=== PATIENT | male | born 1935 | race Caucasian/White ===

== ENCOUNTER 2017-09-22 12:18 | Emergency (ER) | payer MEDICARE ==
[~2017-09-22] VITALS: Ht 177.8 cm; Wt 72.0 kg
[2017-09-22] MEDS ORDERED: LOSA50TA6 PO (12:31)
[2017-09-22] MEDS ORDERED: METF500T4 PO (12:31)
[2017-09-22] MEDS ORDERED: BUSP7.5T3 PO (12:31)
[2017-09-22] MEDS ORDERED: ONDANSETRON 2MG/ML, 2ML ONE (12:36)
[2017-09-22] MEDS ORDERED: MORPHINE SULFATE 4 MG/ML, 1ML ONE ×2 (12:36→13:15)
[2017-09-22] MEDS: MORPHINE SULFATE 4 MG/ML, 1ML IVPush PRN ×2 (12:41→13:18)
[2017-09-22] MEDS ORDERED: FAMOTIDINE 20 MG/2 ML ONE (12:41)
[2017-09-22] MEDS ORDERED: GLIM2TAB2 PO (12:57)
[2017-09-22] MEDS ORDERED: LOVA40TA2 PO (12:57)
[2017-09-22] MEDS ORDERED: TAMS-11 PO (12:57)
[2017-09-22] MEDS ORDERED: OXYB5TAB7 PO (12:57)
[2017-09-22] MEDS ORDERED: LOSA1TAB25 PO (12:57)
[2017-09-22] MEDS ORDERED: FINA5TAB4 PO (12:57)
[2017-09-22] MEDS ORDERED: CITA20TA9 PO (12:57)
[2017-09-22] MEDS ORDERED: TRAM50TA2 PO (12:57)
[2017-09-22 13:00] LABS: BASOPHILS # (AUTO) 0.01 x10^3/uL (0-0.1); BASOPHILS % (AUTO) 0 % (0-1); EOSINOPHILS # (AUTO) 0.02 x10^3/uL (0-0.4); EOSINOPHILS % (AUTO) 0 % (1-7); LYMPHOCYTES # (AUTO) 1.03 x10^3/uL (1-3.4); LYMPHOCYTES % (AUTO) 13 % (22-44); MD NO; MEAN CORPUSCULAR HEMOGLOBIN 31.2 pg (27.5-34.5); MEAN CORPUSCULAR HGB CONC 34.5 g/dL (33.2-36.2); MEAN CORPUSCULAR VOLUME 90.4 fL (81-97); MEAN PLATELET VOLUME 7.4 fL (7.4-10.4); MONOCYTES % (AUTO) 4 % (2-9); NEUTROPHILS # (AUTO) 6.89 x10^3/uL (1.8-6.8); NEUTROPHILS % (AUTO) 84 % (42-75); PLATELET COUNT 294 x10^3/uL (130-400); RED BLOOD COUNT 4.32 x10^6/uL (4.38-5.82); RED CELL DISTRIBUTION WIDTH 12.9 % (9.4-14.8)
[2017-09-22] MEDS ORDERED: FAMOTIDINE 20 MG/2 ML IVP ONE (13:00)
[2017-09-22] MEDS ORDERED: ONDANSETRON 2MG/ML, 2ML IVPush ONE (13:00)
[2017-09-22] MEDS ORDERED: SODIUM CHLORIDE FLUSH 10ML SYR IVF ONE (13:00)
[2017-09-22] MEDS ORDERED: RANITIDINE 50 MG in SODIUM CHLORIDE 0.9% 100 ML IV ONE (13:00)
[2017-09-22] MEDS ORDERED: SODIUM CHLORIDE 0.9% 1,000ML IVBOLUS ONE (13:00)
[2017-09-22 13:11] LABS: ALANINE AMINOTRANSFERASE 16 U/L (12-78); ANION GAP 16 mmol/L (5-15); CALCIUM 8.8 mg/dL (8.5-10.1); CHLORIDE 111 mmol/L (98-107); CREATININE 1.81 mg/dL (0.7-1.3)
[2017-09-22 13:13] LABS: ALKALINE PHOSPHATASE 31 U/L (45-117); BILIRUBIN,TOTAL 0.6 mg/dL (0.2-1.0); TOTAL PROTEIN 7.3 g/dL (6.4-8.2)
[2017-09-22] MEDS ORDERED: FAMOTIDINE 20 MG/2 ML IVPush ONE (14:00)
[2017-09-22 15:57] VITALS: BP 124/55
== END 2017-09-22 16:21 | disposition home or self-care (01) ==
LOC: ED 16:15
DX: G43.A1 Cyclical vomiting, in migraine, intractable (principal); R10.84 Generalized abdominal pain; E11.9 Type 2 diabetes mellitus without complications; I10 Essential (primary) hypertension; Z87.891 Personal history of nicotine dependence; Z90.49 Acquired absence of other specified parts of digestive tract
CPT/HCPCS: 36415; 74176; 80053; 83690; 85025; 96361; 96374; 96375; 96376; 99285; J2405; J7030; S0028

== ENCOUNTER 2020-03-09 17:48 | Emergency (ER) | payer MEDICARE ==
[~2020-03-09] VITALS: Ht 177.8 cm; Wt 68.0 kg
[~2020-03-09 17:48] MED LIST: BUSP7.5T5 PO; CITA20TA9 PO; FINA5TAB4 PO; GLIM2TAB7 PO; LOSA1TAB25 PO; LOSA50TA14 PO; LOVA40TA2 PO; METF500T17 PO; OXYB5TAB10 PO; TAMS-11 PO; TRAM50TA2 PO
--- NOTE | 2020-03-09 18:01 | NUR ---
TASK RN: 84 Y/O MALE PRESENTS TO ED WITH C/O ABD PAIN. PER PT "I THINK I HAVE FOOD POISONING. I HAVE A STOMACH ACHE AND I'M FREEZING." PER DAUGHTER "HE ATE SOME CHICKEN LAST NIGHT. THIS MORNING ABOUT 9-10 HE SAID HE WAS GETTING A HEADACHE AND THE LIGHTS HURT HIS EYES. I SAID HE WAS PROBABLY GETTING A MIGRAINE. I HAD HIM RELAX AND DRINK WATER. HE DRANK SOME WATER AND WAS THROWING UP. HE COULDN'T KEEP ANYTHING DOWN." NO C/O TRAUMA, SYNCOPE, CP, SOB PT PLACED ON CONT PULSE OX, NIBP
--- NOTE | 2020-03-09 18:11 | NUR ---
TASK RN: CONNER BEDSIDE. DAUGHTER IS ALSO BEDSIDE AND STATES SHE IS HIS PRIMARY OBSERVATORY DIRECTOR
--- NOTE | 2020-03-09 18:32 | NUR ---
BEDSIDE REPORT TO YASMINE BELTRAN
[2020-03-09] MEDS ORDERED: ONDANSETRON 2MG/ML, 2ML ONE (18:36)
[2020-03-09 18:42] LABS: BASOPHILS # (AUTO) 0.02 x10^3/uL (0-0.1); BASOPHILS % (AUTO) 0 % (0-1); EOSINOPHILS % (AUTO) 0 % (1-7); LYMPHOCYTES % (AUTO) 9 % (22-44); MD NO; MEAN CORPUSCULAR HEMOGLOBIN 31.3 pg (27.5-34.5); MEAN CORPUSCULAR HGB CONC 34.1 g/dL (33.2-36.2); MEAN PLATELET VOLUME 7.8 fL (7.4-10.4); MONOCYTES # (AUTO) 0.33 x10^3/uL (0.2-0.8); MONOCYTES % (AUTO) 3 % (2-9); NEUTROPHILS # (AUTO) 10.67 x10^3/uL (1.8-6.8); NEUTROPHILS % (AUTO) 88 % (42-75); PLATELET COUNT 301 x10^3/uL (130-400); RED BLOOD COUNT 5.11 x10^6/uL (4.38-5.82); RED CELL DISTRIBUTION WIDTH 13.5 % (9.4-14.8)
[2020-03-09 18:44] LABS: ALANINE AMINOTRANSFERASE 18 U/L (12-78); ALBUMIN 4.3 g/dL (3.4-5.0); ANION GAP 14 mmol/L (5-15); CALCIUM 9.7 mg/dL (8.5-10.1); CHLORIDE 106 mmol/L (98-107)
[2020-03-09 18:47] LABS: ALKALINE PHOSPHATASE 45 U/L (45-117); BILIRUBIN,TOTAL 1.1 mg/dL (0.2-1.0); CREATININE 1.54 mg/dL (0.7-1.3); TOTAL PROTEIN 8.1 g/dL (6.4-8.2)
[2020-03-09] MEDS ORDERED: SODIUM CHLORIDE FLUSH 10ML SYR IVF ONE (19:00)
[2020-03-09] MEDS ORDERED: ONDANSETRON 2MG/ML, 2ML IVPush ONE (19:00)
[2020-03-09] MEDS ORDERED: SODIUM CHLORIDE 0.9% 1,000ML IVBOLUS ONE (19:00)
[2020-03-09 19:11] LABS: MICROSCOPIC INDICATED
--- NOTE | 2020-03-09 19:39 | NUR ---
NEW ORDER FOR CT
[2020-03-09] MEDS ORDERED: MORPHINE SULFATE 4 MG/ML, 1ML ONE (20:06)
[2020-03-09] MEDS ORDERED: MORPHINE SULFATE 4 MG/ML, 1ML IVPush PRN (20:30)
--- NOTE | 2020-03-09 21:03 | NUR ---
PT AT CT
[2020-03-09 21:25] VITALS: BP 123/68
--- NOTE | 2020-03-09 21:58 | NUR ---
ALL RESULTS ARE BACK AT THIS TIME. CHART UP FOR RECHECK.
[2020-03-09] MEDS ORDERED: OMNIPAQUE 350 MG/ML, 100ML BOTTLE ONE (22:46)
== END 2020-03-09 22:42 | disposition home or self-care (01) ==
LOC: ED 18:19
DX: K52.9 Noninfective gastroenteritis and colitis, unspecified (principal); E86.0 Dehydration; R10.84 Generalized abdominal pain; R11.2 Nausea with vomiting, unspecified; I10 Essential (primary) hypertension; E11.9 Type 2 diabetes mellitus without complications
CPT/HCPCS: 36415; 74177; 80053; 81001; 83690; 85025; 96361; 96374; 96375; 99285; J2270; J2405; J7030; Q9967